=== PATIENT | male | born 1955 | race Caucasian/White ===

== ENCOUNTER 2020-11-25 14:51 | Outpatient (CLI) | payer MEDICARE, BC | END 2020-11-25 23:59 | disposition home or self-care (01) | LOC: CFH 14:51 | PROVIDERS: ATTEND Internal Medicine Cardiovascular Disease | DX: I08.8 Other rheumatic multiple valve diseases (principal); I48.0 Paroxysmal atrial fibrillation | CPT/HCPCS: 93306 ==

== ENCOUNTER 2021-04-12 10:21 | Day surgery (SDC) | payer MEDICARE, BC ==
[2021-04-11 10:00] LABS: BASOPHILS % (AUTO) 0 % (0-1); EOSINOPHILS % (AUTO) 4 % (1-7); LYMPHOCYTES % (AUTO) 23 % (22-44); MEAN CORPUSCULAR HEMOGLOBIN 35.3 pg (27.5-34.5); MEAN CORPUSCULAR HGB CONC 34.4 g/dL (33.2-36.2); MEAN PLATELET VOLUME 9.4 fL (7.4-10.4); MONOCYTES % (AUTO) 10 % (2-9); NEUTROPHILS % (AUTO) 63 % (42-75); PLATELET COUNT 176 x10^3/uL (130-400); RED CELL DISTRIBUTION WIDTH 12.5 % (9.4-14.8)
[2021-04-11 10:07] LABS: MD NO
[2021-04-11 10:11] LABS: ANION GAP 4 mmol/L (5-15); CALCIUM 8.8 mg/dL (8.5-10.1); CHLORIDE 106 mmol/L (98-107)
[2021-04-11 10:14] LABS: ALANINE AMINOTRANSFERASE 39 U/L (12-78); ALKALINE PHOSPHATASE 95 U/L (45-117); BILIRUBIN,TOTAL 1.5 mg/dL (0.2-1.0); CREATININE 0.87 mg/dL (0.7-1.3); TOTAL PROTEIN 7.5 g/dL (6.4-8.2)
[~2021-04-12] VITALS: Ht 175.3 cm; Wt 93.7 kg
[~2021-04-12 10:21] MED LIST: BUPIVACAINE/PF 0.5% ONE; CHOL10003 PO; FLEC100T PO; LOSA25TA25 PO; METO25TA35 PO; MULT-717 PO; QUER1POW PO; ZINC PO
[2021-04-12] MEDS ORDERED: CHLORHEXIDINE 15 ML UDC PO ONE (11:00)
[2021-04-12] MEDS ORDERED: LIDOCAINE-MPF 1%, 2ML INFIL ONE (11:00)
[2021-04-12] MEDS ORDERED: LACTATED RINGERS 1,000 ML IV SCH (11:00)
[2021-04-12 11:02] VITALS: BP 160/81
[2021-04-12] MEDS ORDERED: SUCCINYLCHOLINE 20 MG/ML, 10ML ONE (13:53)
[2021-04-12] MEDS ORDERED: CEFAZOLIN 1,000 MG ONE (13:53)
[2021-04-12] MEDS ORDERED: GLYCOPYRROLATE 0.2MG/1ML, 5ML ONE (13:53)
[2021-04-12] MEDS ORDERED: ONDANSETRON 2MG/ML, 2ML ONE (13:53)
[2021-04-12] MEDS ORDERED: DEXAMETHASONE 4 MG/ML, 1ML ONE (13:53)
[2021-04-12] MEDS ORDERED: KETOROLAC 30 MG/1 ML ONE (13:53)
[2021-04-12] MEDS ORDERED: ROCURONIUM 10 MG/ML,10ML ONE (13:53)
[2021-04-12] MEDS ORDERED: NEOSTIGMINE 1 MG/ML, 10ML ONE (13:53)
[2021-04-12] MEDS ORDERED: OXYC1TAB14 PO (14:45)
[2021-04-12] MEDS ORDERED: FENTANYL PF 250 MCG/5ML ONE (14:53)
[2021-04-12] MEDS ORDERED: PROPOFOL 50 ML ONE (14:54)
[2021-04-12] MEDS ORDERED: METHOCARBAMOL 1,000 MG in DEXTROSE 5% 100 ML IV PRN (15:00)
[2021-04-12] MEDS ORDERED: MEPERIDINE/PF 25MG/0.5ML IVPush PRN (15:00)
[2021-04-12] MEDS ORDERED: ONDANSETRON 2MG/ML, 2ML IVPush PRN (15:00)
[2021-04-12] MEDS ORDERED: PROMETHAZINE 25 MG/ML, 1ML IVPush PRN (15:00)
[2021-04-12] MEDS ORDERED: hydrALAzine 20 MG/ML, 1ML IV PRN (15:00)
[2021-04-12] MEDS ORDERED: FENTANYL PF 100 MCG/2ML IV PRN (15:00)
[2021-04-12] MEDS ORDERED: OXYcodone 5 MG/5 ML ORAL.SOL UDC PO PRN (15:00)
[2021-04-12] MEDS ORDERED: LABETALOL 5MG/ML, 20ML IV PRN (15:00)
[2021-04-12] MEDS ORDERED: ACETAMINOPHEN 325 MG TABLET PO PRN (15:00)
[2021-04-12] MEDS ORDERED: HYDROmorphone 1 MG/ML, 1ML INJ IVPush PRN (15:00)
[2021-04-12] MEDS ORDERED: LORazepam 2 MG/ML, 1ML IVPush PRN (15:00)
[2021-04-12] MEDS ORDERED: OXYcodone 5 MG/5 ML ORAL.SOL UDC ONE (15:14)
== END 2021-04-12 16:20 | disposition home or self-care (01) ==
LOC: OUT 10:21
PROVIDERS: ATTEND Surgery
DX: K40.90 Unilateral inguinal hernia, without obstruction or gangrene, not specified as recurrent (principal); I10 Essential (primary) hypertension; N40.0 Benign prostatic hyperplasia without lower urinary tract symptoms; I48.91 Unspecified atrial fibrillation; Z20.822 Contact with and (suspected) exposure to COVID-19; Z79.899 Other long term (current) drug therapy; Z88.0 Allergy status to penicillin; Z88.5 Allergy status to narcotic agent; Z82.49 Family history of ischemic heart disease and other diseases of the circulatory system
CPT/HCPCS: 36415; 49650; 71046; 80053; 85025; 93005; C1781; J0330; J0690; J1100; J1885; J2405; J2704; J2710; J3010; J7120; U0003; U0005